=== PATIENT | male | born 1965 | race African-American/Black ===

== ENCOUNTER 2017-07-15 10:11 | Emergency (ER) | payer OTHER ==
[~2017-07-15] VITALS: Ht 170.2 cm; Wt 68.1 kg
[2017-07-15 12:00] VITALS: BP 129/83
== END 2017-07-15 12:00 | disposition home or self-care (01) ==
LOC: EME 10:11
DX: J02.9 Acute pharyngitis, unspecified (principal); H92.09 Otalgia, unspecified ear; K08.89 Other specified disorders of teeth and supporting structures; K03.81 Cracked tooth
CPT/HCPCS: 87651 90; 99281; 99283

== ENCOUNTER 2017-09-22 17:28 | Emergency (ER) | payer OTHER ==
[~2017-09-22] VITALS: Ht 170.2 cm; Wt 70.1 kg
[2017-09-22 18:36] LABS: HEMATOCRIT 45.8 % (38.0-50.0); HEMOGLOBIN 16.1 G/DL (12.5-16.6); MCH 32.9 PG (29.0-34.0); MCHC 35.2 G/DL (30.0-36.0); MCV 93.7 FL (86-99); PLATELET COUNT 228 K/uL (156-360); RBC DIS.WIDTH-CV 11.9 % (11.8-14.6); RBC DIS.WIDTH-SD 41.7 % (39-53); RED BLOOD COUNT 4.89 M/uL (4.00-5.50); WHITE BLOOD COUNT 7.2 K/uL (4.1-10.2)
[2017-09-22 18:44] LABS: CHLORIDE 106 mEq/L (99-109); POTASSIUM 3.8 mEq/L (3.7-5.4); SODIUM 144 mEq/L (136-147)
[2017-09-22 18:46] LABS: GLUCOSE 91 mg/dL (70-99)
[2017-09-22 18:50] LABS: GFR ESTIMATE (CALCULATED) > 59 mL/min/ (58.99-99999)
[2017-09-22 18:51] LABS: UREA NITROGEN (BUN) 8 mg/dL (9-23)
[2017-09-22] MEDS ORDERED: VALIUM5 MG PO (19:23)
[2017-09-22] MEDS ORDERED: PERCOCET 5/31 TABLET PO (19:23)
[2017-09-22] MEDS ORDERED: NAPROXEN500 MG PO (19:23)
[2017-09-22 19:37] VITALS: BP 137/82
== END 2017-09-22 19:41 | disposition home or self-care (01) ==
LOC: EME 17:28
PROVIDERS: Physician Assistant
DX: M62.830 Muscle spasm of back (principal)
CPT/HCPCS: 72100; 80048; 85027; 99281; 99283